=== PATIENT | female | born 1960 | race Caucasian/White ===

== ENCOUNTER 2017-02-18 02:48 | Inpatient (IN) | payer OTHER ==
[2017-02-18] VITALS (13 sets, daily range): BP systolic 91–120; BP diastolic 65–79; PULSE 70–94; RESP 16–26; O2SAT 94–98
[~2017-02-18] VITALS: Ht 167.6 cm; Wt 106.8 kg
[2017-02-18] MEDS ORDERED: Polyethylene Glycol (PEG) 17 Gm Powder PO PRN (03:15)
[2017-02-18] MEDS ORDERED: Senna-Docusate 8.6-50 mg Tablet PO PRN (03:15)
[2017-02-18] MEDS ORDERED: Ondansetron 2 mg/mL 2 mL Inj IVPUSH PRN ×2 (03:15→06:50)
[2017-02-18] MEDS ORDERED: Alum-Mag Hydrox-Simeth 30 mL Suspension PO PRN (03:15)
[2017-02-18 03:30] LABS: Mean Corpuscular Hemoglobin 28.5 pg (27.0-35.0); Mean Corpuscular Volume 88.9 fL (81-100); Platelet Count 108 bil/L (150-400)
[2017-02-18] MEDS ORDERED: HYDROmorphone 1 mg/mL Inj IVPUSH PRN ×2 (03:30→06:50)
--- NOTE | 2017-02-18 03:32 | PCM.HPMED ---
Subjective Date of Service Feb 18, 2017 Primary Provider: Admitting Physician: Marian Beltran DO Primary Care Physician: Derick Attending Physician: Marian Beltran DO Chief Complaint: Patient is a 56-year-old female with medical history significant for hypertension, GERD, and distant history of b/l ureter surgery with chief complaint of chills. History of Present Illness: Per patient, reports sudden right flank pain about 3 days ago. She came to [facility] which initial evaluation showed that she has urinary tract infection with UA WBC greater than 100/hpf and moderate bacteria. No leukocytosis, electrolytes within normal limits. BUN/creatinine 20/1.1 at the time. She was given nitrofurantoin and Pyridium prior to discharge from ED. Symptoms unabated since that time, right flank pain increase with associated malaise, some nausea, and decreased by mouth intake. Patient started to rigors last night with a temp 100.7. Thus she came to [facility] for reevaluation. Per report, patient had a temperature of 37.9, tachycardic, blood pressure initially was 96/63, however decompensated and thus was given bolus fluids, 6 L in total, in addition to starting her on norepinephrine. Antibiotic Rocephin was given. CT abdomen pelvis with low dose contrast was completed, showed a right sided 4x5mm ureter stone with hydronephrosis and dilated proximal ureter. Currently, patient with right flank pain 5 out of 10. Denies any chest pain, shortness of breath, palpitation, lightheadedness, or dizziness. Patient denies any medical history of diabetes, no history of prior stones, nor recurrent UTI in the past year. Initial labs at [facility] showed normal white count 6.7, Hgb 12.2, HCT 36.8 , platelet 124, neutrophil bands 25. Electrolytes sodium 132, potassium 3.1, chloride 100, bicarbonate 19, BUN 34, creatinine 2.1, lactic acid 2.4. Magnesium 1.6 LFT significant for total bili 1.1, AST 37, PLT 78, alkaline phosphatase 78, lipase 11. Urinalysis showed significant urinary protein 100, small trace of blood, positive nitrate, moderate leukocyte esterase, WBC 11-25, many bacteria, addition to 0-2 fine granular cast. Review of Systems: A comprehensive review of systems was conducted with the patient and found to be negative except as above in the History of Present Illness. Allergies Coded Allergies: sulfamethoxazole (Verified Allergy, Intermediate, hives, "Sore in my throat", 02/18/17) trimethoprim (Verified Allergy, Intermediate, hives, "Sore in my throat", 02/18/17) Home Medications Omeprazole 20 mg daily Ranitidine 150 mg daily Hydrochlorothiazide 25 mg daily Atorvastatin 20 mg hs Aspirin 325 mg daily Azelastine 137 MCG/0.137 mL spray Fish oil 1000 mg daily PMH History of urinary tract infection associated with pregnancies GERD Hypertension Dyslipidemia Surgical History Bilateral ureter surgeries at the age of 15 Family History Denies any family history of coronary artery disease or diabetes Social History Hx Alcohol Use: No Hx Substance Use: No Hx Tobacco Use: No Living Arrangement: with Family Exam Exam General: No acute distress, appropriately interactive HEENT: Normocephalic, atraumatic. PERRLA, EOMI, Anicteric sclerae, moist conjunctivae. Neck: No JVD, No bruits. No lymphadenopathy or thyromegaly. Cardiovascular: Tachycardic, regular rhythm, no murmur rub or gallop Pulmonary: b/l air sound with no crackles, wheezes, or rhonchi. no use of accessory muscles. Abdomen: +Bowel sound, Soft, nontender, nondistended. Right costophrenic angle tenderness, no signs of retroperitoneal bleeding Extremities: No clubbing or cyanosis, no lymphedema, no b/l lower leg edema Skin: Normal temperature, turgor, and texture; no rash. No visualized skin ulcer. Neurological: CN II-VII grossly intact, moving equally on all 4 extremities Psychiatric: Normal mood and affect. AOx3 Lab and Diagnostics X-Rays, CTs and MRIs Initial CT abdomen and pelvis from [facility] 02/18/2017 Preliminary report reviewed 5x4mm stone proximal ureter at the level L3, with hydronephrosis and dilated proximal ureter. Vascular/aorta appear to be normal. 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 Septic shock, present admission, active - Positive SIRS criteria for tachycardic, pyrexic, source pyelonephritis - Antibiotics: Ceftriaxone 1 g qd - Received 6 L normal saline, NS 100cc/h, norepinephrine titrate to map >65, can add vasopressin if Levophed >0.5mcg/kg - Lactic acid trending, - Blood/urine culture pending, will need to call result from [facility] as well, reviewed paper chart from OSH Severe pyelonephritis, present on admission, active - Secondary to a right 4 x 5 mm ureter stone with hydronephrosis - Adequate hydration as above - Urologist Dr. Finnegan consulted, emergent surgery. - Hydromorphone IV as needed - Antibiotics as above Acute kidney injury, present on admission, active - Secondary to sepsis and also pyelonephritis - Monitors I's and O's, Mobley catheter in placed - Removal of obstructive stone as above - Abstain from nephrotoxic medication Chronic medical conditions Essential hypertension - Holding hydrochlorothiazide secondary to sepsis Dyslipidemia - Can restart it at her first on 20 mg when patient stable, tolerated by mouth intake GERD - Famotidine while inpatient DVT prophylaxis: Holding heparin subcutaneous pending urological procedures, SCDs CODE STATUS: Full code Patient is admitted under inpatient status with length of stay greater than 2 midnights due to severity of illness. GI Prophylaxis: H2 fredrick VTE Prophylaxis: SCDs Resuscitation Status: CPR: Attempt Resuscitation Attending Statement The patient was seen and examined together with house staff on 02/18/2017 and I agree with the history, exam and plan as outlined in the note above. 45 minutes of critical care time spend with management, plan development and record review. Magdaleno Matt DO Feb 18, 2017 03:32 Marian Beltran DO Feb 18, 2017 05:03
[2017-02-18] MEDS: 0.9% Sodium Chloride 1,000 ML IV SCH ×3 (03:44→23:25)
[2017-02-18 03:46] LABS: BASOPHILS % (AUTO) 0 % (0-3); EOSINOPHILS % (AUTO) 0 % (0-5); MONOCYTES % (AUTO) 7 % (4-12); NEUTROPHILS % (AUTO) 86 % (40-74)
[2017-02-18] MEDS ORDERED: Norepineph 8,000 mCg/250 mL NS 8,000 MCG in IV Premix 1 EACH IV SCH (04:04)
[2017-02-18] MEDS: Norepineph 8,000 mCg/250 mL NS 8,000 MCG in IV Premix 1 EACH IV SCH (04:10)
[2017-02-18 04:11] LABS: Magnesium 1.7 mg/dL (1.6-2.6)
--- NOTE | 2017-02-18 04:29 | ABG ---
DateTimeAnalyzed 04:21:33 -_ pH ____7.315 - 7.350 7.450 pCO2 ___29.1__ -mmHg 35.0 45.0 pO2 ___84.7__ -mmHg 70.0 100 HCO3- ___14.8__ -mmol/L 22.0 26.0 ABE __-10.4__ -mmol/L -2.0 2.0 tHb ___10.6__ -g/dL 12.0 18.0 O2Hb ___95.2__ -% 95.0 COHb ____1.0__ -% 1.5 MetHb ____0.3__ -% 0.4 1.5 sO2 ___96.4__ -% FIO2 ___21.0__ -% Drawn By MD - Date/Time Notified____ 04:28:00 -_ Liter_Flow ____1.00_ -L/min Oxygen Device 1 __CANNULA - Notified By MD - Notified Whom DR HURLEY, TIARA - K+ ____3.4__ -mmol/L tO2 ___14.3__ -Vol% Jordan test _Positive -
[2017-02-18 05:18] LABS: APPEARANCE,URINE CLEAR (CLEAR,HAZY); COLOR,URINE YELLOW (YELLOW); OCCULT BLOOD,URINE MODERATE (NEGATIVE); UROBILINOGEN,URINE NORMAL (NORMAL)
--- NOTE | 2017-02-18 05:35 | NUR ---
Admission//Pain 0315 - Patient admitted into room 2013, admission screening done, A&Ox4 pleasant and cooperative, BP stable and starting to titrate Levophed down, receiving 7th liter of NS and infusing at 100ml/hr, pain 5/10 and patient stated it is tolerable at this time, updated on POC, no distress noted. 0535 - OR crew transferred patient to pre-op, report given and patient A&Ox4, Levophed off at this time, last BP @ 0530 - 115/73. Addendum: 02/18/17 at 0543 by LOREN ESPINOZA RN Amended: Links added.
--- NOTE | 2017-02-18 05:46 | PCM.HPANE ---
Patient Data Date of Service: Feb 18, 2017 Surgeon Admitting Provider:Marian Beltran DO Attending Provider:Yossi Garrido MD Primary Care Physician:Karime Kenney MD Other Provider: Reason for Visit Septic Shock, Pyelonephritis Ht/WT & BMI Height (Feet): 5 Height (Inches): 6.00 Weight (Kilograms): 84.600 Body Mass Index 29.97 Allergies Coded Allergies: sulfamethoxazole (Verified Allergy, Intermediate, hives, "Sore in my throat", 02/18/17) trimethoprim (Verified Allergy, Intermediate, hives, "Sore in my throat", 02/18/17) Past Anesthesia History Anesthesia History: Denies:: Anesthesia Reactions MRSA MRSA: No History History of ENT Problems?: No HEENT History: Denies:: Abnormal Airway Cataracts Difficult Intubation Dysphagia Glaucoma Hearing Problem Sinus Problem TMJ Denture Type: None Teeth Condition: Within Normal Limits Hx of Heart Problems?: No Cardiovascular History: Denies:: AICD Abdominal Aortic Aneurism Atrial Fibrillation Cardiac Surgery Chest Pain Congestive Heart Failure Coronary Artery Disease Edema Heart Murmur Hypertension Irregular Heartbeat Pacemaker Peripheral Vascular Rheumatic Fever Thrombophlebitis Valvular Heart Disease Hx of Respiratory Problem?: No Respiratory History: Denies:: Asthma COPD Chest Surgery Cough Dyspnea Emphysema Hemoptysis Oxygen Administration Pneumonia Pulmonary Embolism Tuberculosis Use of C-PAP Machine Use of Inhalers / NEBS Hx Neurologic Problems?: No Neurological History: Positive for:: Headaches (Before menopause) Hx of GI Problems?: Yes Hx of Problems?: Yes Genitourinary History: Positive for:: Kidney Stones (02/17/17) Urinary Tract Infection (29 years ago) Denies:: HX of Hemodialysis HX of Peritoneal Dialysis: No Female Hx: Denies:: Currently Endometriosis Pelvic Inflammatory Problems with Breasts? Hx Musculoskeletal Problems?: No Hx of Psycho/Social Problems?: No Hx Surgeries?: Yes Hx Any Other Health Problems?: Yes Other History: Positive for:: Hospitalization (13 years ago - ureter sx bilateral) History Blood Transfusions: Positive for:: Accept Blood Products? Denies:: Blood Transfuse Reaction Blood Transfusions Hx Alcohol Use: NoHx Substance Use: No Stop/Bang Treated for Sleep Apnea?: No Do You Have a CPAP Machine?: No S-Snoring: Do You Snore Loudly: Yes T-Tired: feel tired, fatigued: No O-Obsered: Observed not breath: No P-Blood Pressure: treated: No B- Body Mass Index > 35 kg/m2: Yes A- Age over 50: Yes N- Neck Large Circumference: No G- Gender Male: No CHELY Total Score: 3 CHELY Risk Assessment: Low Risk, <3 Yes Risk Assessment Category Category 1A: Patient has history of documented sleep apnea, and HAS NOT received any narcotic, sedative or anesthesia administration during this stay. Category 1B: Patient has history of documented sleep apnea, and HAS received any narcotic , sedative or anesthesia administration during this stay Category 2: Patient has SUSPECTED Obstructive Sleep Apnea, and HAS received any narcotic , sedative or anesthesia administration during this stay. Category 3: Patient has SUSPECTED Obstructive Sleep Apnea and HAS NOT received narcotic, sedative or anesthesia administration during this stay. Category 4: Outpatient in Procedural Areas with known sleep apnea or who screen positive for High Risk via the STOP/BANG questionnaire. Exam Exam Vital Signs Vital Signs Date Time Temp Pulse Resp B/P Pulse Ox O2 Delivery O2 Flow Rate FiO2 02/18/17 03:50 36.8 91 26 120/73 96 Nasal Cannula 1.00 02/18/17 03:50 Supplement Oxygen General Appearance: Alert, Oriented X3, Cooperative, No Acute Distress HEENT/AIRWAY: MP 4, Neck Movement, Mouth Opening Lungs: Clear to Auscultation, Normal Air Movement Heart: Exam Unremarkable, Regular Rate/Rhythm, No Murmurs/Rubs/Gallops Meds/Labs/Diagnostics Admission Meds Current Medications Sodium Chloride (Normal Saline) 1,000 ml @ 100 mls/hr Q10H IV Last administered on 02/18/17t 03:44; Start 02/18/17 at 03:25 Labs Test 02/18/17 03:20 02/18/17 03:38 White Blood Count 12.8th/mm3 (3.8-10.1) Red Blood Count 3.79mil/mm3 (3.90-5.20) Hemoglobin 10.8g/dL (12.0-15.6) Hematocrit 33.7% (35.0-46.0) Mean Corpuscular Volume 88.9fL (81-100) Mean Corpuscular Hemoglobin 28.5pg (27.0-35.0) Mean Corpuscular Hemoglobin Concent 32.0% (32.0-37.0) Red Cell Distribution Width 13.5% (12.3-15.4) Platelet Count 108bil/L (150-400) Neutrophils (%) (Auto) 86% (40-74) Lymphocytes (%) (Auto) 2% (14-46) Monocytes (%) (Auto) 7% (4-12) Eosinophils (%) (Auto) 0% (0-5) Basophils (%) (Auto) 0% (0-3) Band Neutrophils % 5% (1-5) Hematology Comments Sodium Level 139mEq/L (134-144) Potassium Level 3.5mEq/L (3.5-5.2) Chloride Level 108mEq/L (97-108) Carbon Dioxide Level 11mmol/L (18-29) Blood Urea Nitrogen 26mg/dL (6-24) Creatinine 1.56mg/dL (0.57-1.00) Estimat Glomerular Filtration Rate 50mL/min (>59) Glucose Level 115mg/dL (60-99) Lactic Acid Level 1.0mmol/L (0.4-2.0) Calcium Level 7.4mg/dL (8.5-10.1) Magnesium Level 1.7mg/dL (1.6-2.6) Total Bilirubin 0.4mg/dL (0.0-1.2) Aspartate Amino Transf (AST/SGOT) 28U/L (0-50) Alanine Aminotransferase (ALT/SGPT) 32U/L (0-32) Alkaline Phosphatase 66U/L (25-150) Troponin T 0.010ug/L (0.0-0.011) Total Protein 6.0g/dL (6.4-8.4) Albumin 2.4g/dL (3.4-5.0) Prealbumin 9mg/dL (20-40) Urine Color Yellow (YELLOW) Urine Appearance Clear (CLEAR,HAZY) Urine pH 5.0 (5.0-8.0) Urine Specific [place] 1.019 (1.003-1.035) Urine Protein 30mg/dL (NEG,TRACE) Urine Glucose (UA) Negativemg/dL (NEGATIVE) Urine Ketones 40mg/dL (NEGATIVE) Urine Occult Blood Moderate (NEGATIVE) Urine Nitrite Negative (NEGATIVE) Urine Bilirubin Negative (NEGATIVE) Urine Urobilinogen Normalmg/dL (NORMAL) Urine Leukocyte Esterase Negative (NEGATIVE) Urine RBC 0-2/hpf (0-2) Urine WBC 0-5/hpf (0-5) Urine Epithelial Cells Few/hpf (NONE-MOD) Urine Crystals None seen (NONE SEEN) Urine Bacteria Few/hpf (NONE-FEW) Urine Hyaline Casts None/lpf (NONE) Urine Granular Casts None seen (NONE SEEN) Urine Waxy Casts None seen (NONE SEEN) Urine Red Blood Cell Casts None seen (NONE SEEN) Urine White Blood Cell Casts None seen (NONE SEEN) Urine Mucus None seen (None Seen) Urine Trichomonas None seen (NONE SEEN) Urine Yeast None (NONE SEEN) Urinalysis Comment None Urine Culture Reflexed Not indicated Plan Impression Patient chart reviewed, patient interviewed and anesthestic plan with risks, benefits, and alternatives discussed, and informed consent obtained. NPO per Anesth. Guidelines: Yes ASA Physical Status: ASA3 Plus Emergency Anesthetic Plan: GA Bene/Risks/Altern/Consents: Yes HP Complete Prior to Induction: Yes Alec Moreau MD Feb 18, 2017 05:46
[2017-02-18] MEDS ORDERED: Lactated Ringer's 1,000 ML IV ONE (05:52)
[2017-02-18] MEDS ORDERED: Belladonna Alk-Opium 60 mg Rectal Suppository RECTAL ONE (06:29)
--- NOTE | 2017-02-18 06:48 | PCM.SURGPO ---
Immediate Operative Note Date of Surgery: Feb 18, 2017 Pre Operative Diagnosis R ureteral calculus, R hydronephrosis, septic shock Post Operative Diagnosis R ureteral calculus, R hydronephrosis, septic shock Procedure Cystoscopy, R ureteral stent placement Surgeon and Site Inspector Surgeon: Dustin Finnegan MD Assistants: None Findings Cystoscopy revealed scattered mildly erythematous and mildly edematous areas ( consistent with cystitis), no bladder calculi, no bladder tumors, and B/L ureteral orifices in normal position. Mildly cloudy urine was drained from R renal pelvis. R hydronephrosis was seen. R ureteral stent was placed. Complications There were no periprocedural complications identified. Surgical Specimen Removed: Yes Specimen sent to Pathology: No Surgical Specimen description: urine Cx from R kidney sent to micro lab Anesthetic Administered: MAC, Other (IV sedation) Grafts, Implants: Other (28cm x 6F R ureteral JJ stent (no string), 16F Mobley catheter to straight drainage) Output, Estimated Blood Loss: <5 Blood Admin during surgery: No Additional information Patient to be transferred back to CCU when stable. Recommend continuing broad- spectrum IV Abx and IVF hydration post-op. Mobley catheter can be removed when not needed for medical management. Dustin Finnegan MD Feb 18, 2017 06:48
[2017-02-18] MEDS ORDERED: Lactated Ringer's 1,000 ML IV SCH (06:49)
[2017-02-18] MEDS ORDERED: Lactated Ringer's 500 ML IV PRN (06:49)
[2017-02-18] MEDS ORDERED: fentaNYL-PF 50 mCg/mL 2 mL Inj IVPUSH PRN (06:50)
[2017-02-18] MEDS ORDERED: Phenylephrine 10,000 mCg/mL Inj IVPUSH PRN (06:50)
[2017-02-18] MEDS ORDERED: Dexamethasone 4 mg/mL Inj IVPUSH PRN (06:50)
[2017-02-18] MEDS ORDERED: EPHEDrine Sulfate 50 mg/mL Inj IVPUSH PRN (06:50)
[2017-02-18] MEDS ORDERED: MetoCLOpramide 5 mg/mL 2 mL Inj IVPUSH PRN (06:50)
[2017-02-18] MEDS ORDERED: Labetalol 5 mg/mL 4 mL Inj IV PRN (06:50)
[2017-02-18] MEDS ORDERED: hydrALAZINE 20 mg/mL Inj IVPUSH PRN (06:50)
--- NOTE | 2017-02-18 06:51 | PCM.ANEP1 ---
Post Anesthesia PACU Phase 1 Assessment Vital Signs Vital Signs Date Time Temp Pulse Resp B/P Pulse Ox O2 Delivery O2 Flow Rate FiO2 02/18/17 06:45 36.7 94 22 108/76 95 Nasal Cannula 2 02/18/17 03:50 36.8 91 26 120/73 96 Nasal Cannula 1.00 02/18/17 03:50 Supplement Oxygen Anesthetic Administered: MAC Level of Alertness: Awake, talking Pain: No Nausea or Vomiting: No CV Function & Hydration Stable: Yes Airway Device: Oxygen Delivery: Room Air Lungs: Clear to Auscultation, Normal Air Movement PACU Phase 2 Assessment Complications: No Follow up Care: No Patient Instructions Provided: N/A Alec Moreau MD Feb 18, 2017 06:51
--- NOTE | 2017-02-18 06:52 | CONS ---
[address] [address] CONSULTATION REPORT PATIENT: RAMILA LOPEZ : 1960 MR#: [id number] ADMIT: 02/18/2017 JOB ID: [id number] DATE OF SERVICE: 02/18/2017 CHIEF COMPLAINT: Right back pain, right ureteral calculus, right hydronephrosis, septic shock. HISTORY OF PRESENT ILLNESS: I was asked by hospitalist, Dr. Marian Beltran, to evaluate this 56-year-old female for right back pain, right ureteral calculus, right hydronephrosis and septic shock. The patient actually presented to our hospital emergency department on February 15, 2017 for right flank pain and had a urinalysis suspicious for urinary tract infection and was started on Macrobid. The patient then presented to [facility] Emergency Department yesterday evening for right back pain and was found to have tachycardia, hypotension and fever of 38.5 degrees Celsius and had a CT scan of abdomen and pelvis showing a 5 mm right proximal ureteral calculus and right hydroureteronephrosis. The patient was given IV fluid resuscitation, Rocephin, IV antibiotics and was started on norepinephrine for her hypotension. The patient reports fever, shaking chills, right back pain relieved by IV pain medications, nausea with occasional vomiting. No dysuria. The patient states she had difficulty voiding last night and had a Mobley catheter placed at [facility] Emergency Department. The patient reports history of bilateral ureteral surgery at 15 years old for what sounds like a vesicoureteral reflux. The patient reports history of pyelonephritis with no prior history of nephrolithiasis. The patient was transferred from [facility] Emergency Department to [facility] last night under the care of hospitalist, Dr. Beltran. The patient was on Levophed upon transfer from [facility] Emergency Department and Levophed was able to be titrated down and the patient is presently off of Levophed and not presently requiring pressors for her blood pressure. PAST MEDICAL AND PAST SURGICAL HISTORY: Hypertension, gastroesophageal reflux disease. No history of diabetes. History of hypertension, hyperlipidemia, bilateral ureteral surgery as per HPI. HOME MEDICATIONS: Omeprazole, ranitidine, hydrochlorothiazide, atorvastatin, aspirin, azelastine, fish oil. PRESENT HOSPITAL MEDICATIONS: Ceftriaxone, Pepcid, norepinephrine, Dilaudid IV p.r.n., Zofran IV p.r.n., Tylenol p.r.n., Senokot p.r.n., Maalox p.r.n., MiraLAX p.r.n. ALLERGIES: 1. SULFAMETHOXAZOLE. 2. TRIMETHOPRIM. SOCIAL HISTORY: No alcohol use. No substance abuse. No tobacco use. FAMILY HISTORY: Noncontributory. REVIEW OF SYSTEMS: Constitutional: Positive for fever. Positive for chills. GI: Positive for nausea, positive for vomiting. PHYSICAL EXAMINATION: Vital signs: Temperature afebrile presently at 36.8 degrees Celsius, heart rate 91, respiratory rate 26, blood pressure 120/73, O2 sat 96% on 1 L nasal cannula. General: Well-developed well-nourished female in no acute distress. HEENT Exam: Head normocephalic, atraumatic. Eyes: Extraocular muscles intact. Neck: Supple. Chest: No use of accessory muscles. Nonlabored respirations. No retractions. Abdomen: Soft, nondistended, nontender. No palpable masses. No rebound, no guarding. Back: Positive for right costovertebral angle tenderness. Skin: Warm and dry. Neurologic Exam: Sensation grossly intact to touch. Normal speech. Psych Exam: Alert and oriented x3. Normal mood and affect. LABORATORIES: Here at [facility] at 3:20 a.m.: White blood cell count 12.8, hematocrit 33.7, platelets 108. Sodium 139, potassium 3.5, chloride 108, CO2 of 11, BUN 26, creatinine 1.56, glucose 115. Lactic acid 1.00. Urinalysis pending. Microbiology blood cultures pending. On February 15, 2017: Creatinine 1.10. White blood cell count 9.3. Urinalysis greater than 100 white blood cells, 1-5 red blood cells, greater than 30 epithelial cells. Urine culture not done secondary to field contamination with [facility] last night. On February 17, 2017: White blood cell count 6.7. Creatinine 2.1. Lactic acid 2.4. Urinalysis: 11-25 white blood cells, positive nitrite, moderate leukocyte esterase, 0-5 red blood cells. IMAGING: CT scan as per HPI. ASSESSMENT: 1. Right ureteral calculus. 2. Right hydronephrosis. 3. Right back pain. 4. Septic shock with leukocytosis. 5. Hypotension. 6. Tachycardia. 7. Fever. 8. Lactic acidosis. Risks, benefits and alternatives of surgery, specifically cystoscopy and right ureteral stent placement, were discussed with the patient. All questions were answered. The patient wishes to have surgery as recommended. PLAN: We will plan for emergent surgery, specifically cystoscopy and right ureteral stent placement. The patient has been n.p.o. Recommend continuing broad spectrum IV antibiotics. Recommend continuing IV fluid resuscitation. Recommend following laboratories, including white blood cell count, creatinine, electrolytes and lactic acid. Recommend following cultures including blood cultures here at [facility] and urine and blood cultures at [facility]. I recommend continuing pain medications and antiemetics postoperatively. The case was discussed with hospitalist, Dr. Beltran and anesthesiologist, Dr. Alec Moreau, and as per Dr. Beltran and Dr. Moreau, the patient is medically stable to undergo anesthesia and have surgery, in the future. If patient is unable to pass the right ureteral calculus, we will plan for treatment of right ureteral calculus, i.e. cystoscopy, right ureteroscopy, possible basket extraction of calculus, possible holmium laser lithotripsy and right renal stent change, in the future.
[2017-02-18] MEDS ORDERED: Phenazopyridine 97.5 mg Tablet PO PRN (07:00)
[2017-02-18] MEDS ORDERED: NITR-66 PO (08:20)
[2017-02-18] MEDS ORDERED: AZEL137S11 NASAL (08:20)
[2017-02-18] MEDS ORDERED: OMEP40CA36 PO (08:20)
[2017-02-18] MEDS ORDERED: HYDR-4003 PO (08:20)
[2017-02-18] MEDS ORDERED: HYDR25TA4 PO (08:20)
[2017-02-18] MEDS ORDERED: OMEG500C PO (08:20)
[2017-02-18] MEDS ORDERED: ASPI325T32 PO (08:20)
[2017-02-18] MEDS ORDERED: ATOR20TA65 PO (08:20)
[2017-02-18] MEDS ORDERED: RANI300T4 PO (08:20)
[2017-02-18] MEDS ORDERED: Ketamine 10 mg/mL 20 mL Inj ONE (09:45)
[2017-02-18] MEDS ORDERED: Propofol 10,000 mCg/mL 20 mL Inj ONE (09:45)
--- NOTE | 2017-02-18 10:00 | DRSVH ---
PROCEDURE: X-RAY RETROGRADE UROGRAPHY INDICATIONS: C-ARM ASSISTED RIGHT STENT PLACEMENT TECHNIQUE: 4 intra-operative images acquired by the Urology service. COMPARISON: None. FINDINGS: Exam is limited to 4 submitted images. Within these limits, partial opacification of the right renal collecting system demonstrating prominence of the right renal pelvis. Roughly 7 mm round ed radiodensity is present projected over the renal pelvis likely a retained stone. Ureteral stent w as placed. IMPRESSION: Prominence of the right renal pelvis with small intraluminal filling defect projected ove r the renal pelvis suggestive of retained renal stone. Correlate with real-time exam. Dictated by: Lalito HALL Interpreted: Alicia Holt MD on 02/18/2017 at 9:57 Transcribed by: GERRY on 02/18/2017 at 9:59 Approved by: Alicia Holt M.D. on 02/18/2017 at 11:46
[2017-02-18] MEDS: cefTRIAXone Inj 2,000 MG in Dextrose 5% Minibag Plus 50 ML IV SCH (11:03)
--- NOTE | 2017-02-18 11:14 | NUR ---
Post op.. pt received from PACU at 0700 in stable condition. Has denied any pain and is candelaria clear liquids without any nausea. Diet advanced per orders. Mobley is draining clear kaycee urine. Has been transferred to [facility] status, no tele.
--- NOTE | 2017-02-18 11:26 | PCM.PNMED ---
Subjective Date of Service Feb 18, 2017 Subjective Overnight the patient underwent a right ureteral stent procedure with Dr. Finnegan. This morning Mrs. Phan reports feeling much better than yesterday. She feels weak and "worn out" but otherwise denies any fevers/chills, nausea/vomiting, chest pain, shortness of breath. Exam Vital Signs Vital Sign - Last Date Time Temp Pulse Resp B/P Pulse Ox O2 Delivery O2 Flow Rate FiO2 02/18/17 08:44 88 02/18/17 08:00 36.8 21 115/75 96 Nasal Cannula 1.50 Intake and Output 02/17/17 02/17/17 02/18/17 Cumulative From/Thru 15:00 23:00 07:00 02/18/17 04:04 - 02/18/17 06:51 Intake Total 823 ml 823 ml Output Total 555 ml 555 ml Balance 268 ml 268 ml Intake Oral 0 ml 0 ml IV Total 823 ml 823 ml Output Urine Total 550 ml 550 ml Estimated Blood Loss 5 ml 5 ml # Bowel Movements 0 0 Exam General: Pleasant and cooperative female in no acute distress, appropriately interactive HEENT: NCAT. PERRLA, EOMI. Membranes pink and moist. Neck: Supple without JVD or thyromegaly. There is a right central line in place. Cardiovascular: RRR, no murmur/rub/gallop Pulmonary: CTA bilaterally without wheezes/rales/rhonchi. Abdomen: Normoactive bowel sounds. Soft, nontender, nondistended. Mild right CVA tenderness. Extremities: No clubbing or cyanosis, edema Skin: Normal temperature, turgor, and texture; no rash Neurological: A&Ox3. CN II-VII grossly intact, normal strength and sensation in all extremities. Psychiatric: Normal mood and affect. IVs and Medications Medications Reviewed: Medications were reviewed in detail Lab and Diagnostics Result Diagram: 02/18/17 0320 02/18/17 032 Microbiology MRSA swab negative Blood cultures pending Urine cultures pending X-Rays, CTs and MRIs Initial CT abdomen and pelvis from [facility] 02/18/2017 Preliminary report reviewed 5x4mm stone proximal ureter at the level L3, with hydronephrosis and dilated proximal ureter. Vascular/aorta appear to be normal. Urography 02/18 IMPRESSION: Prominence of the right renal pelvis with small intraluminal filling defect projected over the renal pelvis suggestive of retained renal stone. Correlate with real-time exam. 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 Septic shock, present admission. Resolved. - Patient was positive for SIRS criteria (tachycardic, pyrexic) with probable source pyelonephritis - Received 6 L normal saline, NS 100cc/h, norepinephrine titrate to map >65, can add vasopressin if Levophed >0.5mcg/kg - Antibiotics Ceftriaxone 2 g IV daily - Lactic acid 1.1 - Blood cultures pending - Urine culture not indicated from our UA - Transfer out of ICU if her blood pressures are maintained Severe pyelonephritis, present on admission, active - Secondary to a right 4 x 5 mm ureter stone with hydronephrosis - Hydration as above - Urologist Dr. Finnegan consulted, emergent surgery with right ureteral stent placement - Hydromorphone IV as needed - Antibiotics as above Acute kidney injury, present on admission, active - Secondary to sepsis and also pyelonephritis - Monitors I's and O's, will remove novak as tolerated - Removal of obstructive stone as above with stent placement - Avoid nephrotoxic medication Chronic medical conditions Essential hypertension - Continue to hold hydrochlorothiazide - Continue to monitor blood pressures Hyperlipidemia - Continue home Atorvastatin, tolerated by mouth intake GERD - Continue Famotidine DVT prophylaxis: Holding heparin subcutaneous pending urological procedures, SCDs in place. CODE STATUS: Full code Patient is admitted under inpatient status with length of stay greater than 2 midnights due to severity of illness. Pain Evaluation: Adequate Pain Control GI Prophylaxis: H2 fredrick VTE Prophylaxis: SCDs VTE Mechanical Devices: Intermittant Pneumatic CD Resuscitation Status: CPR: Attempt Resuscitation Attending Statement The patient was seen and examined together with Dr. Harper on 02/18/2017 and I agree with the history, exam and plan as outlined in the note above. . Rick Harper DO Feb 18, 2017 11:26 Yossi Garrido MD Feb 20, 2017 08:03
[2017-02-18] MEDS: HYDROcodone-APAP 10-325 mg PO PRN ×2 (15:33→20:24)
[2017-02-18] MEDS ORDERED: cefTRIAXone Inj 1,000 MG in Dextrose 5% Minibag Plus 50 ML IV SCH (20:30)
[2017-02-18] MEDS ORDERED: cefTRIAXone Inj 2,000 MG in Dextrose 5% Minibag Plus 50 ML IV SCH (20:30)
--- NOTE | 2017-02-18 21:26 | OP ---
[address] [address] OPERATIVE REPORT PATIENT: RAMILA LOPEZ : 1960 MR#: [id number] ADMIT: 02/18/2017 JOB ID: [id number] DATE OF SURGERY: 02/18/2017 PREOPERATIVE DIAGNOSIS(ES): Right ureteral calculus, right hydronephrosis, septic shock. POSTOPERATIVE DIAGNOSIS(ES): Right ureteral calculus, right hydronephrosis, septic shock. PROCEDURE: Cystoscopy, right ureteral stent placement. SURGEON: Dustin Finnegan MD. STRAW HAT BRIM CUTTER OPERATOR: None. ANESTHESIA: MAC with IV sedation. ESTIMATED BLOOD LOSS: Less than 5 mL. SPECIMENS: Urine culture from right kidney sent to microbiology lab. DRAINS: 28 cm x 6-Faroese right ureteral double-J stent, 16-Faroese Mobley catheter to straight drainage. COMPLICATIONS: None. CONDITION: Stable. FINDINGS: Cystoscopy revealed scattered mildly erythematous and mildly edematous (consistent with cystitis), no bladder calculi, no bladder tumors, and bilateral ureteral orifices in normal position. Mildly cloudy urine was drained from the right renal pelvis. Right hydronephrosis was seen. Right ureteral stent was placed. INDICATIONS: The patient is a 56-year-old female with right ureteral calculus, right hydronephrosis, and septic shock. The patient now presents for cystoscopy and right ureteral stent placement. PROCEDURE: The patient was brought to the operating room and placed supine on the operating room table. The patient had been given ceftriaxone IV antibiotics in the emergency department prior to surgery. Sequential compression device boots were placed. MAC with IV sedation anesthesia was administered. The patient was brought down into dorsal lithotomy position. The patient was prepped and draped in standard sterile surgical fashion. Of note, Mobley catheter had been removed prior to prepping and draping the patient. A 22-Faroese rigid cystoscope was placed into the urethra without difficulty. Cystoscopy revealed scattered mildly erythematous and mildly edematous areas (consistent with cystitis), no bladder calculi, no bladder tumors, and bilateral ureteral orifices in normal position. An angle-tip Ultratrack guidewire was passed into the right ureteral orifice and passed up the right ureter and placed into the right renal pelvis. A 5-Faroese open-ended catheter was passed over the guidewire through the cystoscope and passed up the right ureter into the right renal pelvis. The guidewire was removed. Mildly cloudy urine was drained from the right renal pelvis via the open-ended catheter. After all the urine was drained from the right renal collecting system a small amount of contrast was instilled into the right renal collecting system via the open-ended catheter. Right hydronephrosis was seen. The guidewire was advanced through the open-ended catheter up the right ureter into the right renal pelvis. Open-ended catheter was removed. A 28 cm x 6-Faroese ureteral double-J stent, with the stent string removed prior to stent placement, was passed over the guidewire through the cystoscope and passed up the right ureter and placed so proximal pigtail was located in the right renal pelvis and distal pigtail was located in the bladder. The guidewire was removed. Correct positioning of the stent was confirmed both fluoroscopically and under direct visualization using cystoscope. Good efflux of contrast and mildly cloudy urine could be seen draining from the distal end of the stent into the bladder, further confirming correct stent positioning. Right ureteral stent was placed. The cystoscope was removed from the patient. A 16-Faroese Mobley catheter was placed through the urethra and into the bladder without difficulty. Mobley catheter balloon was inflated with 10 mL of sterile water. Mobley catheter was placed to straight drainage. Of note, some of the urine that was drained from the right renal pelvis was sent to the microbiology lab as urine culture from right kidney. Mobley catheter was placed through the urethra into the bladder without difficulty. Mobley catheter balloon was inflated with 10 mL sterile water. Mobley catheter was placed to straight drainage. The skin was cleaned and dried. The patient was placed in the supine position. The patient was transferred to the recovery room in stable condition. The patient tolerated the procedure well. PLAN: Is for the patient to be transferred back to the CCU when stable. Recommend continuing broad-spectrum IV antibiotics and IV fluid hydration postoperatively. Mobley catheter can be removed when not needed for medical management. Recommend following laboratories, including white blood cell count, creatinine and electrolytes postoperatively. Recommend following up on urine and blood culture results. When patient is stable for discharge home recommend the patient return to see me in the office in approximately 2-3 weeks with a KUB x-ray prior to the appointment and recommend that patient be discharged home on Flomax and appropriate antibiotic to complete a two-week course, pain medication and that patient be instructed to increase p.o. fluid intake and to strain her urine.
[2017-02-19 03:33] VITALS: BP 95/64; PULSE 59; RESP 16; O2SAT 96
[2017-02-19] MEDS: Norepineph 8,000 mCg/250 mL NS 8,000 MCG in IV Premix 1 EACH IV SCH (04:10)
--- NOTE | 2017-02-19 05:26 | NUR ---
Renal, pain Vs as noted. Up to bathroom to void with standby assist. Tolerated well. Urine dark cloudy without particulate when strained. Complains of back discomforts treated once with [place] with adequate relief. IVF NS at 100ml/h to right IJ cvl. Remains on room air with sats mid 90s. Remains off tele in [facility].
[2017-02-19 05:28] LABS: Mean Corpuscular Hemoglobin 28.5 pg (27.0-35.0); Mean Corpuscular Volume 88.4 fL (81-100); Platelet Count 98 bil/L (150-400)
[2017-02-19 05:43] LABS: BASOPHILS % (AUTO) 0.1 % (0-3); EOSINOPHILS % (AUTO) 0 % (0-5); NEUTROPHILS % (AUTO) 83.1 % (40-74)
[2017-02-19 09:31] VITALS: BP 96/64; PULSE 67; RESP 18; O2SAT 98
[2017-02-19] MEDS: 0.9% Sodium Chloride 1,000 ML IV SCH ×2 (09:37→22:57)
[2017-02-19] MEDS: cefTRIAXone Inj 2,000 MG in Dextrose 5% Minibag Plus 50 ML IV SCH (09:37)
[2017-02-19 12:19] VITALS: BP 124/85; PULSE 71; RESP 16; O2SAT 97
--- NOTE | 2017-02-19 12:28 | PCM.PNMED ---
Subjective Date of Service Feb 19, 2017 Subjective Overnight there were no acute events. Mrs. Phan reports feeling stronger and that her pain is being managed better. She reports mild flank tenderness but no fevers, chills, nausea, vomiting. She would like her IJ pulled so she can walk the unit. Exam Vital Signs Vital Sign - Last Date Time Temp Pulse Resp B/P Pulse Ox O2 Delivery O2 Flow Rate FiO2 02/19/17 12:19 36.6 71 16 124/85 97 Room Air 02/18/17 16:00 1.50 Intake and Output 02/18/17 02/18/17 02/19/17 Cumulative From/Thru 15:00 23:00 07:00 02/18/17 04:04 - 02/19/17 05:25 Intake Total 2274 ml 1590 ml 4687 ml Output Total 1025 ml 650 ml 2230 ml Balance 1249 ml 940 ml 2457 ml Intake Oral 1277 ml 450 ml 1727 ml IV Total 997 ml 1140 ml 2960 ml Output Urine Total 1025 ml 650 ml 2225 ml Estimated Blood Loss 5 ml # Bowel Movements 0 Exam General: Pleasant and cooperative female sitting upright in NAD HEENT: NCAT. PERRLA, EOMI. Membranes pink and moist. Neck: Supple without JVD or thyromegaly. There is a right central line in place. Cardiovascular: RRR, no murmur/rub/gallop Pulmonary: CTA bilaterally without wheezes/rales/rhonchi. Abdomen: Normoactive bowel sounds. Soft, nontender, nondistended. Mild right CVA tenderness. Extremities: No clubbing or cyanosis, edema Skin: Normal temperature, turgor, and texture; no rash Neurological: A&Ox3. CN II-VII grossly intact, normal strength and sensation in all extremities. Psychiatric: Normal mood and affect. IVs and Medications Medications Reviewed: Medications were reviewed in detail Lab and Diagnostics Result Diagram: 02/19/1751902/19/17519 Microbiology MRSA swab negative Blood cultures pending Urine cultures pending X-Rays, CTs and MRIs Initial CT abdomen and pelvis from [facility] 02/18/2017 Preliminary report reviewed 5x4mm stone proximal ureter at the level L3, with hydronephrosis and dilated proximal ureter. Vascular/aorta appear to be normal. Urography 02/18 IMPRESSION: Prominence of the right renal pelvis with small intraluminal filling defect projected over the renal pelvis suggestive of retained renal stone. Correlate with real-time exam. 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 Septic Shock, present on admission. Resolved. - Patient admitted with SIRS criteria with probable pyelonephritis as source - Received 6L NS with Norepinephrine weaned off early 02/18 - Lactic Acid normalized at 1.1 - Transferred out of ICU 02/18 Severe pyelonephritis, present on admission. Improving. - Secondary to a right 4 x 5 mm ureter stone with hydronephrosis - Urologist Dr. Finnegan consulted, emergent surgery with right ureteral stent placement - WBC trending toward normal, lactate normal - Will obtain urine cultures from [facility] for ongoing and outpatient antibiotic choice - NS at 100ml/hr, Ceftriaxone 2g IV daily - Hydromorphone IV as needed - Plan on discharge per Dr. Finnegan: Follow up in [address] Finnegan with KUB done prior to visit Continue Flomax until follow up 2 weeks of antibiotics and pain medication Acute kidney injury, present on admission. Improving. - Secondary to sepsis and also pyelonephritis - Creatinine fell to 1.12 - Hydration as above - Avoid nephrotoxic medications Essential hypertension - Continue to hold hydrochlorothiazide Hyperlipidemia - Continue Atorvastatin GERD - Continue Famotidine Disposition: Patient will likely be discharged tomorrow depending on her continued response to hydration and overall medical stability. DVT prophylaxis: Holding heparin subcutaneous pending urological procedures, SCDs in place. CODE STATUS: Full code Pain Evaluation: Adequate Pain Control GI Prophylaxis: H2 fredrick VTE Prophylaxis: SCDs VTE Mechanical Devices: Intermittant Pneumatic CD Resuscitation Status: CPR: Attempt Resuscitation Attending Statement The patient was seen and examined together with Dr. Harper on 02/19/2017 and I agree with the history, exam and plan as outlined in the note above. . Rick Harper DO Feb 19, 2017 12:28 Yossi Garrido MD Feb 20, 2017 08:03
--- NOTE | 2017-02-19 13:48 | NUR ---
Social Work: Screen/Multidisciplinary Rounds D: Per EMR review, pt is a 56 year old female admitted for septic shock, pyelonephritis. Pt is John Covarrubias with no supplement. PCP is Karime Kenney MD. NOK is Shakeel Phan, spouse. Advanced directives information left or patent at bedside. Readmit score is low, 08/22. Pt lives in [place] with her spouse. Pt is I at baseline and has been I during admission. Pt has been participating in her own self-care. No concerns discussed in rounds for pt's capacity for self-care. A: Pt who lives at home with her spouse. P: Anticipate pt to discharge home via POV once medically stable; SEARCH DIRECTOR will continue to follow to assess for discharge needs. CLAUDIA Haddad
[2017-02-19 16:19] VITALS: BP 107/64; PULSE 82; RESP 15; O2SAT 98
[2017-02-19] MEDS: HYDROcodone-APAP 10-325 mg PO PRN ×2 (16:27→19:53)
--- NOTE | 2017-02-19 18:14 | NUR ---
/BP No reports of chest pain/pressure/discomfort. No tele, systolic BP 96 this AM, resolved to WNL this afternoon. No reports of n/v/d/c or abdominal pain, states she does feel bloated. Soft BM this AM. Voiding dark yellow urine with small amounts of dribbling post void per patient. Straining urine, no solid particles visualized. Tolerating PO intake well. Reports generalized moderate fatigue. Flank pain 5-7/10, reports 5/10 as tolerable, did not want [place] 10/325 until after 4pm, one tablet brought pain down from 7 to 4.
[2017-02-19 19:47] VITALS: BP 108/73; RESP 18; O2SAT 97
[2017-02-19 22:53] VITALS: BP 107/73; PULSE 84; RESP 20; O2SAT 95
[2017-02-20 03:22] LABS: BASOPHILS % (AUTO) 0.1 % (0-3); EOSINOPHILS % (AUTO) 0.1 % (0-5); Mean Corpuscular Hemoglobin 28.7 pg (27.0-35.0); Mean Corpuscular Volume 87.2 fL (81-100); NEUTROPHILS % (AUTO) 79.1 % (40-74); Platelet Count 111 bil/L (150-400)
--- NOTE | 2017-02-20 06:01 | NUR ---
Pain / UO Patient given Vicodin for pain, reports right flank pain drops form 7 down to 4. States 4 is tolerable and declines any further pain medication. Patient voiding per hat in the toilet. Straining urine, no solids noted. Continue to monitor.
[2017-02-20 07:53] VITALS: BP 110/73; PULSE 74; RESP 18; O2SAT 98
[2017-02-20] MEDS: cefTRIAXone Inj 2,000 MG in Dextrose 5% Minibag Plus 50 ML IV SCH (08:06)
[2017-02-20] MEDS: 0.9% Sodium Chloride 1,000 ML IV SCH (08:06)
[2017-02-20] MEDS: HYDROcodone-APAP 10-325 mg PO PRN (10:51)
[2017-02-20] MEDS ORDERED: TAMS0.4C98 PO (12:29)
[2017-02-20] MEDS ORDERED: LACT1.5C PO (12:29)
[2017-02-20] MEDS ORDERED: LEVO750T9 PO (12:29)
--- NOTE | 2017-02-20 12:37 | PCM.DIMED ---
LACIE GAINES DO 02/20/17 1225: Discharge Instructions Date of Service Feb 20, 2017 Dates of Hospitalization Feb 18, 2017 at 02:59 Discharge Diagnosis Discharge Diagnosis Septic Shock, present on admission. Resolved. Severe pyelonephritis, present on admission. Improving. Acute kidney injury, present on admission. Improving. Essential hypertension Hyperlipidemia GERD Medication Instructions Additional med instructions Continue Taking Flowmax until you see your urologist, at which point they will decide whether or not to continue. Continue the Antibiotics for 10 days (Levaquin 750 mg Daily.) Pain medication as needed. 1 pill every 4 - 6 hours for pain. Do not combine with alcoholic beverages or operate motor vehicles while taking this medication. Patient Instructions Patient Instructions It is important to stay hydrated and continue regular urination. Increase dietary supplementation with live culture yogurt, Kimchi, sauerkraut ( refrigerated) to increase the healthy digestive probiotics. Follow-up plan Follow up with your PCP in 1-2 weeks following your hospital stay. Follow up with Dr. Finnegan, your urologist in 2 weeks. You will need an XRAY of your abdomen (KUB) before your urology visit. Follow-up Provider: Karime Kenney MD Follow-up with PCP in: 2 weeks Provider: Dustin Finnegan MD Follow-up in: 2 weeks Yossi Garrido MD 02/20/17 1606: Discharge Instructions Attending's Statement The patient was seen and examined together with Dr. Gaines on 02/20/2017 and I agree with the history, exam and plan as outlined in the note above. . LACIE GAINES DO Feb 20, 2017 12:25 Yossi Garrido MD Feb 20, 2017 16:06
[2017-02-20] MEDS ORDERED: HYDR-3740 PO (12:38)
--- NOTE | 2017-02-20 13:35 | NUR ---
Discharge pt ordered for discharge home with family. pt aware and agreeable. discharge instructions and medication reviewed with patient and . pt escorted to front lobby via wheelchair with all belongings at about 1325.
--- NOTE | 2017-02-20 19:39 | PCM.DC.MED ---
Discharge Summary Date of Service Feb 20, 2017 Dates of Hospitalization Date of Hospital Admission Feb 18, 2017 at 02:59 Date of Discharge: Feb 20, 2017 Providers: Admitting Physician: Marian Beltran DO Primary Care Physician: Karime Kenney MD Attending Physician: Yossi Garrido MD Diagnosis at Time of Discharge Diagnosis at Time of Discharge Septic Shock, present on admission. Resolved. Severe pyelonephritis, present on admission. Improving. Acute kidney injury, present on admission. Improving. Essential hypertension Hyperlipidemia GERD Procedures XRay, CTs & MRIs Initial CT abdomen and pelvis from [facility] 02/18/2017 Preliminary report reviewed 5x4mm stone proximal ureter at the level L3, with hydronephrosis and dilated proximal ureter. Vascular/aorta appear to be normal. Urography 02/18 IMPRESSION: Prominence of the right renal pelvis with small intraluminal filling defect projected over the renal pelvis suggestive of retained renal stone. Correlate with real-time exam. Dictated by: Lalito العلي RRA Interpreted: Alicia Holt MD on 02/18/2017 at 9:57 Transcribed by: GERRY on 02/18/2017 at 9:59 Brief History Per patient, reports sudden right flank pain about 3 days ago. She came to [facility] which initial evaluation showed that she has urinary tract infection with UA WBC greater than 100/hpf and moderate bacteria. No leukocytosis, electrolytes within normal limits. BUN/creatinine 20/1.1 at the time. She was given nitrofurantoin and Pyridium prior to discharge from ED. Symptoms unabated since that time, right flank pain increase with associated malaise, some nausea, and decreased by mouth intake. Patient started to rigors last night with a temp 100.7. Thus she came to [facility] for reevaluation. Per report, patient had a temperature of 37.9, tachycardic, blood pressure initially was 96/63, however decompensated and thus was given bolus fluids, 6 L in total, in addition to starting her on norepinephrine. Antibiotic Rocephin was given. CT abdomen pelvis with low dose contrast was completed, showed a right sided 4x5mm ureter stone with hydronephrosis and dilated proximal ureter. Patient was treated with antibiotics, a short duration of pressers, right ureteral stent placement placed and antibiotics for pyelo- nephritis and acute kidney injury, and septic shock and discharged 02/20/17 in stable condition. 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 Septic Shock, present on admission. Resolved. - Patient admitted with SIRS criteria with probable pyelonephritis as source - Transferred out of ICU 02/18 and discharged home 02/20/17. Severe pyelonephritis, present on admission. Resolved. - Secondary to a right 4 x 5 mm ureter stone with hydronephrosis - Urologist Dr. Finnegan consulted, emergent surgery with right ureteral stent placement - WBC trended toward normal, lactate normal - NS at 100ml/hr, Ceftriaxone 2g IV daily until discharge. - Hydromorphone IV as needed before discharge. - Plan on discharge per Dr. Finnegan: Follow up in [address] Finnegan with KUB done prior to visit Continue Flomax until follow up 2 weeks of antibiotics and pain medication Acute kidney injury, present on admission. Improving. - Secondary to sepsis and also pyelonephritis - Creatinine fell to 1.12 Essential hypertension - Continue to hold hydrochlorothiazide, will restart as outpatient. Hyperlipidemia - Continue Atorvastatin GERD - Continue Famotidine Disposition: Patient is discharged today (02/9717) in stable condition. Exam Vital Signs (Last) Date Time Temp Pulse Resp B/P Pulse Ox O2 Delivery O2 Flow Rate FiO2 02/20/17 07:53 36.8 74 18 110/73 98 Room Air 02/18/17 16:00 1.50 Exam General: Pleasant and cooperative female sitting upright in NAD HEENT: NCAT. PERRLA, EOMI. Membranes pink and moist. Neck: Supple without JVD or thyromegaly. There is a right central line in place. Cardiovascular: RRR, no murmur/rub/gallop Pulmonary: CTA bilaterally without wheezes/rales/rhonchi. Abdomen: Normoactive bowel sounds. Soft, nontender, nondistended. Mild right CVA tenderness. Extremities: No clubbing or cyanosis, edema Skin: Normal temperature, turgor, and texture; no rash Neurological: A&Ox3. CN II-VII grossly intact, normal strength and sensation in all extremities. Psychiatric: Normal mood and affect. Test 02/18/17 03:20 02/18/17 03:38 02/18/17 06:30 02/19/17 05:20 Hemoglobin A1c 5.5% (4.8-5.6) Lactic Acid Level 1.0mmol/L (0.4-2.0) Magnesium Level 1.7mg/dL (1.6-2.6) Troponin T 0.010ug/L (0.0-0.011) Prealbumin 9mg/dL (20-40) Urine Color Yellow (YELLOW) Urine Appearance Clear (CLEAR,HAZY) Urine pH 5.0 (5.0-8.0) Urine Specific Hanna 1.019 (1.003-1.035) Urine Protein 30mg/dL (NEG,TRACE) Urine Glucose (UA) Negativemg/dL (NEGATIVE) Urine Ketones 40mg/dL (NEGATIVE) Urine Occult Blood Moderate (NEGATIVE) Urine Nitrite Negative (NEGATIVE) Urine Bilirubin Negative (NEGATIVE) Urine Urobilinogen Normalmg/dL (NORMAL) Urine Leukocyte Esterase Negative (NEGATIVE) Urine RBC 0-2/hpf (0-2) Urine WBC 0-5/hpf (0-5) Urine Epithelial Cells Few/hpf (NONE-MOD) Urine Crystals None seen (NONE SEEN) Urine Bacteria Few/hpf (NONE-FEW) Urine Hyaline Casts None/lpf (NONE) Urine Granular Casts None seen (NONE SEEN) Urine Waxy Casts None seen (NONE SEEN) Urine Red Blood Cell Casts None seen (NONE SEEN) Urine White Blood Cell Casts None seen (NONE SEEN) Urine Mucus None seen (None Seen) Urine Trichomonas None seen (NONE SEEN) Urine Yeast None (NONE SEEN) Urinalysis Comment None Urine Culture Reflexed Not indicated Hold Urine Received (Received) Band Neutrophils % 0% (1-5) Hematology Comments Total Bilirubin 0.2mg/dL (0.0-1.2) Aspartate Amino Transf (AST/SGOT) 18U/L (0-50) Alanine Aminotransferase (ALT/SGPT) 25U/L (0-32) Alkaline Phosphatase 54U/L (25-150) Total Protein 5.1g/dL (6.4-8.4) Albumin 2.4g/dL (3.4-5.0) Test 02/20/17 03:05 White Blood Count 10.1th/mm3 (3.8-10.1) Red Blood Count 3.66mil/mm3 (3.90-5.20) Hemoglobin 10.5g/dL (12.0-15.6) Hematocrit 31.9% (35.0-46.0) Mean Corpuscular Volume 87.2fL (81-100) Mean Corpuscular Hemoglobin 28.7pg (27.0-35.0) Mean Corpuscular Hemoglobin Concent 32.9% (32.0-37.0) Red Cell Distribution Width 14.2% (12.3-15.4) Platelet Count 111bil/L (150-400) Neutrophils (%) (Auto) 79.1% (40-74) Lymphocytes (%) (Auto) 11.1% (14-46) Monocytes (%) (Auto) 9.0% (4-12) Eosinophils (%) (Auto) 0.1% (0-5) Basophils (%) (Auto) 0.1% (0-3) Sodium Level 140mEq/L (134-144) Potassium Level 3.8mEq/L (3.5-5.2) Chloride Level 109mEq/L (97-108) Carbon Dioxide Level 16mmol/L (18-29) Blood Urea Nitrogen 25mg/dL (6-24) Creatinine 1.15mg/dL (0.57-1.00) Estimat Glomerular Filtration Rate 70mL/min (>59) Glucose Level 121mg/dL (60-99) Calcium Level 7.9mg/dL (8.5-10.1) Microbiology Results MRSA swab negative Blood cultures pending Urine cultures pending Discharge Medications Discharge Medications Aspirin (Aspirin) 325 Mg Tablet 325 MG PO DAILY (Reported) Atorvastatin Calcium (Atorvastatin Calcium) 20 Mg Tablet 20 MG PO HS (Reported) Hydrochlorothiazide (Hydrochlorothiazide) 25 Mg Tablet 10 MG PO DAILY (Reported ) Lactobacillus Acidophilus (Probiotic Acidophilus) 1.5 Mg (250 Million Cell) Capsule 1.5 MG PO DAILY Prescribed by: LACIE GAINES DO Levofloxacin (Levaquin) 750 Mg Tablet 750 MG PO DAILY Prescribed by: LACIE GAINES DO Nitrofurantoin Macrocrystal (Macrodantin) 100 Mg Capsule 1 CAPSULE PO BID ( Reported) [place]-3 Fatty Acids (Fish Oil) 500 Mg Capsule.dr 1,000 MG PO DAILY (Reported) Omeprazole (Omeprazole) 40 Mg Capsule.dr 40 MG PO DAILY (Reported) Ranitidine (Ranitidine) 300 Mg Tablet 300 MG PO HS (Reported) Tamsulosin (Flomax) 0.4 Mg Capsule 0.4 MG PO DAILY Prescribed by: LACIE GAINES DO As needed Azelastine HCl (Azelastine HCl) 137 Mcg/0.137 Ml [place].pump 1 SPRAY NASAL DAILY PRN PRN allergies (Reported) Hydrocodone-Acetaminophen 10-325 mg (Hydrocodone-Acetaminophen 10-325 mg) 1 Each Tablet 1-2 TABLET PO Q4H PRN PRN For Pain Prescribed by: LACIE GAINES DO Hydrocodone-Acetaminophen 5-325 mg (Hydrocodone-Acetaminophen 5-325 mg) 1 Each Tablet 1-2 TABLET PO Q6H PRN PRN For Pain (Reported) Additional med instructions Continue Taking Flowmax until you see your urologist, at which point they will decide whether or not to continue. Continue the Antibiotics for 10 days (Levaquin 750 mg Daily.) Pain medication as needed. 1 pill every 4 - 6 hours for pain. Do not combine with alcoholic beverages or operate motor vehicles while taking this medication. Followup Plan Disposition: Home. Follow-up plan Follow up with your PCP in 1-2 weeks following your hospital stay. Follow up with Dr. Finnegan, your urologist in 2 weeks. You will need an XRAY of your abdomen (KUB) before your urology visit. Patient Instructions It is important to stay hydrated and continue regular urination. Increase dietary supplementation with live culture yogurt, Kimchi, sauerkraut ( refrigerated) to increase the healthy digestive probiotics. Follow-up Provider: Karime Kenney MD Follow-up with PCP in: 2 weeks Provider: Dustin Finnegan MD Follow-up in: 2 weeks Time spent Greater than 30 minutes was spent in preparation of discharge with greater than 50% of that time dedicated to patient counseling and coordination of care. . Attending Statement The patient was seen and examined together with Dr. Gaines on 02/20/2017 and I agree with the history, exam and plan as outlined in the note above. . copies to: Dustin Finnegan MD; Karime Kenney MD, COREY P DO Feb 20, 2017 19:33 Yossi Garrido MD Feb 21, 2017 09:15
== END 2017-02-20 13:15 | disposition home or self-care (01) | DRG 871 ==
LOC: CCU 02:59 → PCC 08:30
PROVIDERS: ADMIT Internal Medicine; ATTEND Internal Medicine
PROC: BT141ZZ Fluoroscopy of Kidneys, Ureters and Bladder using Low Osmolar Contrast (ICD-10-PCS; 2017-02-18)
PROC: 4A033B1 Measurement of Arterial Pressure, Peripheral, Percutaneous Approach (ICD-10-PCS; 2017-02-18)
PROC: 0T768DZ Dilation of Right Ureter with Intraluminal Device, Via Natural or Artificial Opening Endoscopic (ICD-10-PCS; principal; 2017-02-18 05:00)
DX: A41.9 Sepsis, unspecified organism (principal); R65.21 Severe sepsis with septic shock; N13.6 Pyonephrosis; I10 Essential (primary) hypertension; K21.9 Gastro-esophageal reflux disease without esophagitis; E78.5 Hyperlipidemia, unspecified; Z79.82 Long term (current) use of aspirin

== ENCOUNTER 2017-03-17 12:13 | Day surgery (SDC) | payer OTHER ==
[~2017-03-17] VITALS: Ht 167.6 cm; Wt 94.3 kg
[2017-03-17] VITALS (9 sets, daily range): BP systolic 102–122; BP diastolic 66–76; PULSE 66–83; RESP 14–17; O2SAT 95–99
[~2017-03-17 12:13] MED LIST: ASPI325T32 PO; ATOR20TA65 PO; HYDR-3740 PO; HYDR12.5 PO; LORA10CA PO; Lactated Ringer's 1,000 ML IV SCH; OMEG500C PO; OMEP40CA36 PO; RANI300T4 PO; TAMS0.4C98 PO; cefTRIAXone 2,000 mg/D5W 50 mL IV Minibag Plus IV SCH
[2017-03-17] MEDS ORDERED: cefTRIAXone 2,000 mg/D5W 50 mL IV Minibag Plus IV ONE ×2 (13:00)
[2017-03-17] MEDS ORDERED: Lactated Ringer's 1,000 ML IV ONE (13:02)
[2017-03-17] MEDS ORDERED: Lactated Ringer's 500 ML IV PRN (15:06)
[2017-03-17] MEDS ORDERED: Lactated Ringer's 1,000 ML IV SCH (15:06)
--- NOTE | 2017-03-17 15:06 | PCM.HPANE ---
Patient Data Surgeon Admitting Provider: Attending Provider:Dustin Finnegan MD Primary Care Physician:Karime Kenney MD Other Provider:Rick Blank Anesthesia Reason for Visit Right Kidney Stone Ht/WT & BMI Height (Feet): 5 Height (Inches): 6 Weight (Kilograms): 94.35 Body Mass Index 33.00 Allergies Coded Allergies: sulfamethoxazole (Verified Allergy, Intermediate, hives, "Sore in my throat", 03/10/17) trimethoprim (Verified Allergy, Intermediate, hives, "Sore in my throat", 03/10/17) Past Anesthesia History Anesthesia History: Denies:: Abnormal Airway, Anesthesia Reactions, Difficult Intubation Diabetes History Hx Diabetes?: No MRSA MRSA: No Medications Blood Thinner: Aspirin Hypertension Medication: No Home Meds Incl Beta Shahzad: No Active Scripts Tamsulosin (Flomax)0.4 Mg Capsule0.4 Mg PO DAILY #30 CAPSULE Ref 2 Prov:LACIE GAINES P DO 02/20/17 Reported Medications Hydrocodone-Acetaminophen 10-325 mg 1 Each Tablet1 Tablet PO Q6H PRN For Pain Ref 0 03/10/17 Loratadine (Claritin)10 Mg Xrridcm13 Mg PO DAILY Ref 0 03/10/17 Hydrochlorothiazide 12.5 Mg Ldmbimo86.5 Mg PO DAILY 30 Days Ref 0 03/10/17 [place]-3 Fatty Acids (Fish Oil)500 Mg Capsule.dr1,000 Mg PO DAILY 02/18/17 Aspirin 325 Mg Nhvltx860 Mg PO DAILY #1 BOTTLE 02/18/17 Omeprazole 40 Mg Capsule.dr40 Mg PO DAILY #30 02/18/17 Ranitidine 300 Mg Geyzgm004 Mg PO HS #30 02/18/17 Atorvastatin Calcium 20 Mg Lsniyc35 Mg PO HS #30 02/18/17 Discontinued Reported Medications Azelastine HCl 137 Mcg/0.137 Ml [place].pump1 [place] NASAL DAILY PRN allergies #30 02/18/17 Nitrofurantoin Macrocrystal (Macrodantin)100 Mg Capsule1 Capsule PO BID #14 02/18/17 Hydrocodone-Acetaminophen 5-325 mg 1 Each Tablet1-2 Tablet PO Q6H PRN For Pain # 20 02/18/17 Hydrochlorothiazide 25 Mg Bukfnd67 Mg PO DAILY #30 02/18/17 Discontinued Scripts Hydrocodone-Acetaminophen 10-325 mg 1 Each Tablet1-2 Tablet PO Q4H PRN For Pain #14 TABLET Prov:LACIE GAINES P DO 02/20/17 Levofloxacin (Levaquin)750 Mg Ukpqhn178 Mg PO DAILY #10 TABLET Prov:MCCLILLIAM MAY P DO 02/20/17 Lactobacillus Acidophilus (Probiotic Acidophilus)1.5 Mg (250 Million Cell) Capsule1.5 Mg PO DAILY #30 CAPSULE Prov:MCCFRANCESCA,LACIE P DO 02/20/17 History History of ENT Problems?: No HEENT History: Denies:: Abnormal Airway Cataracts Difficult Intubation Dysphagia Hearing Problem Sinus Problem TMJ Denture Type: None Teeth Condition: Within Normal Limits Hx of Heart Problems?: No Cardiovascular History: Positive for:: Edema (lower left leg- takes HCTZ for) Denies:: AICD Abdominal Aortic Aneurism Atrial Fibrillation Cardiac Surgery Chest Pain Congestive Heart Failure Heart Murmur Hypertension Irregular Heartbeat Pacemaker Rheumatic Fever Thrombophlebitis Valvular Heart Disease Hx of Respiratory Problem?: No Respiratory History: Denies:: Asthma COPD Chest Surgery Cough Dyspnea Emphysema Hemoptysis Oxygen Administration Pneumonia Pulmonary Embolism Tuberculosis Use of C-PAP Machine Hx Neurologic Problems?: No Neurological History: Positive for:: Headaches (Before menopause) Hx of GI Problems?: Yes Hx of Problems?: Yes Genitourinary History: Positive for:: Kidney Stones (right stone current problem, surg here 02/18/17) Denies:: HX of Hemodialysis Urinary Tract Infection (prior hx of) HX of Peritoneal Dialysis: No Female Hx: Denies:: Currently (tubal) Endometriosis Pelvic Inflammatory Problems with Breasts? Skin History: Positive for:: History Skin Disorders? (Sun spot right breast removed) Denies:: Pressure Ulcers Hx Musculoskeletal Problems?: No Musculoskeletal History: Denies:: Back Injury Musculoskeletal Trauma Myasthenia Gravis Osteoarthritis Hx of Psycho/Social Problems?: No Hx Surgeries?: Yes (tubal, cysto-stent) Hx Any Other Health Problems?: Yes Other History: Positive for:: Hospitalization (13 years ago - ureter sx bilateral) Denies:: Cancer Thyroid Disease History Blood Transfusions: Positive for:: Accept Blood Products? Denies:: Blood Transfuse Reaction Blood Transfusions Hx Diabetes: No Hx Alcohol Use: NoHx Substance Use: No Smoking Status: Never Smoker Stop/Bang S-Snoring: Do You Snore Loudly: Yes T-Tired: feel tired, fatigued: No O-Obsered: Observed not breath: No P-Blood Pressure: treated: Yes B- Body Mass Index > 35 kg/m2: No A- Age over 50: Yes N- Neck Large Circumference: No G- Gender Male: No CHELY Total Score: 3 CHELY Risk Assessment: High Risk, =/>3 Yes Risk Assessment Category Category 1A: Patient has history of documented sleep apnea, and HAS NOT received any narcotic, sedative or anesthesia administration during this stay. Category 1B: Patient has history of documented sleep apnea, and HAS received any narcotic , sedative or anesthesia administration during this stay Category 2: Patient has SUSPECTED Obstructive Sleep Apnea, and HAS received any narcotic , sedative or anesthesia administration during this stay. Category 3: Patient has SUSPECTED Obstructive Sleep Apnea and HAS NOT received narcotic, sedative or anesthesia administration during this stay. Category 4: Outpatient in Procedural Areas with known sleep apnea or who screen positive for High Risk via the STOP/BANG questionnaire. Exam Exam Vital Signs Vital Signs Date Time Temp Pulse Resp B/P Pulse Ox O2 Delivery O2 Flow Rate FiO2 03/17/17 13:03 36.6 81 14 114/76 96 Room Air General Appearance: Alert HEENT/AIRWAY: MP 3, Neck Movement (FROM, 3 FB) Lungs: Clear to Auscultation Heart: Regular Rate/Rhythm Meds/Labs/Diagnostics Admission Meds Current Medications Lactated Ringer's (Lr) 1,000 ml @ ud STK-MED ONCE IV Last administered on t 13:02; Start 03/17/17 at 13:02; Stop 03/17/17 at 13:03; Status DC Plan Impression Patient chart reviewed, patient interviewed and anesthestic plan with risks, benefits, and alternatives discussed, and informed consent obtained. NPO per Anesth. Guidelines: Yes ASA Physical Status: ASA2 Mod Systemic Disease Anesthetic Plan: GA Bene/Risks/Altern/Consents: Yes HP Complete Prior to Induction: Yes Dangelo Mcekon MD Mar 17, 2017 14:14
[2017-03-17] MEDS ORDERED: Dexamethasone 4 mg/mL Inj IVPUSH PRN (15:10)
[2017-03-17] MEDS ORDERED: EPHEDrine Sulfate 50 mg/mL Inj IVPUSH PRN (15:10)
[2017-03-17] MEDS ORDERED: HYDROmorphone 1 mg/mL Inj IVPUSH PRN (15:10)
[2017-03-17] MEDS ORDERED: MetoCLOpramide 5 mg/mL 2 mL Inj IVPUSH PRN (15:10)
[2017-03-17] MEDS ORDERED: fentaNYL-PF 50 mCg/mL 2 mL Inj IVPUSH PRN (15:10)
[2017-03-17] MEDS ORDERED: Phenylephrine 10,000 mCg/mL Inj IVPUSH PRN (15:10)
[2017-03-17] MEDS ORDERED: Ondansetron 2 mg/mL 2 mL Inj IVPUSH PRN (15:10)
[2017-03-17] MEDS ORDERED: Belladonna Alk-Opium 60 mg Rectal Suppository RECTAL ONE (15:41)
--- NOTE | 2017-03-17 16:25 | PCM.SURGPO ---
Immediate Operative Note Date of Surgery: Mar 17, 2017 Pre Operative Diagnosis R renal calculus Post Operative Diagnosis R renal calculus Procedure Cystoscopy, R ureteroscopy, Holmium laser lithotripsy, basket extraction of calculus fragments, R ureteral stent removal, and R ureteral stent placement Surgeon and Shank Archer Surgeon: Dustin Finnegan MD Assistants: None Findings Cystoscopy revealed no bladder tumors or calculi. R semi-rigid ureteroscopy revealed no calculi in R distal or R mid ureter. A 12/14F x 35cm ureteral access sheath was placed in R ureter. R flexible ureteroscopy revealed no calculi in R proximal ureter and an approx. 5-6mm R lower pole renal calculus. Holmium laser lithotripsy and basket extraction of calculus fragments were performed. R ureteral stent was removed, and a new R ureteral stent was placed. Complications There were no periprocedural complications identified. Surgical Specimen Removed: Yes Specimen sent to Pathology: No Surgical Specimen description: R renal calculus fragments sent to lab for stone analysis Anesthetic Administered: GA Grafts, Implants: Other (28cm x 5F R ureteral JJ stent (+string)) Output, Estimated Blood Loss: <5 Blood Admin during surgery: No Additional information Patient to return to see CHRISTY Mustafa in 4-6 days for post-op visit and stent removal. Dustin Finnegan MD Mar 17, 2017 16:25
--- NOTE | 2017-03-17 16:35 | PCM.DISURG ---
Surgical Discharge Instruction Date of Service Mar 17, 2017 Dates of Hospitalization Date of Hospital Admission Mar 17, 2017 Providers Admitting Physician: Dustin Finnegan MD Primary Care Physician: Karime Kenney MD Attending Physician: Dustin Finnegan MD Discharge Diagnosis Discharge Diagnosis R renal calculus Post Operative diagnosis R renal calculus Diet Discharge Diet: No restrictions, Other (Drink at least 10-12 8oz. glasses (3 liters) of fluids per day) Activity Discharge Activity-General: No driving while taking narcotic Dressing and Incisional Care Hygiene: May shower Additional Instructions Discharge Instructions Do not pull on the stent string (which is in the vagina) Follow Up Plan Follow-up Provider (F9): Megha Mustafa PA-C Follow-up appointment: Days (4-6 days for post-op visit and stent removal) Call your provider for: Fever, Chills, Vomiting, Other (Pain uncontrolled by pain medications) Dustin Finnegan MD Mar 17, 2017 16:35
[2017-03-17] MEDS ORDERED: HYDROcodone-APAP 5-325 mg Tablet PO PRN (16:40)
[2017-03-17] MEDS ORDERED: Phenazopyridine 97.5 mg Tablet PO PRN (16:45)
--- NOTE | 2017-03-17 17:03 | DRSVH ---
PROCEDURE: X-RAY RETROGRADE UROGRAPHY INDICATIONS: RIGHT KIDNEY STONE TECHNIQUE: 2 intra-operative images acquired by the Urology service. COMPARISON: Outside Film, CT, CT ABD PELVIS W CON, 02/17/2017, 20:13. [facility], CR, X R KUB, 03/04/2017, 14:53. [facility], CR, XR RETROGRADE UROGRAPHY, 02/18/2017, 5:31. FINDINGS: Exam limited to submitted images. Within these limits, partial opacification of the right renal collecting system which demonstrates no hydronephrosis and no definite intraluminal filling de fects visualized. Ureteral stent in place. IMPRESSION: Limited exam demonstrating partial opacification of the right renal collecting system which demonstra radha no hydronephrosis or visualized intraluminal filling defects. Ureteral stent placed. Dictated by: Lalito العلي Eric Interpreted: Keron Rudolph MD on 03/17/2017 at 16:23 Approved by: Keron uRdolph M.D. on 03/17/2017 at 17:00
--- NOTE | 2017-03-17 19:52 | PCM.ANEP1 ---
Post Anesthesia PACU Phase 1 Assessment Vital Signs Vital Signs Date Time Temp Pulse Resp B/P Pulse Ox O2 Delivery O2 Flow Rate FiO2 03/17/17 17:23 66 16 109/69 96 Room Air 03/17/17 16:48 36.2 70 16 113/66 95 Room Air 03/17/17 16:42 83 15 120/75 95 Room Air 03/17/17 16:38 76 14 119/76 95 Room Air 03/17/17 16:25 74 15 118/74 99 Room Air 03/17/17 16:20 71 14 116/72 99 Simple Mask 10 03/17/17 16:15 72 16 122/72 99 Simple Mask 10 03/17/17 16:10 36.6 75 17 102/73 99 Simple Mask 10 03/17/17 13:03 36.6 81 14 114/76 96 Room Air Anesthetic Administered: GA Level of Alertness: Awake, talking BOWMAN's with Equal Strength: Yes Pain: No Nausea or Vomiting: No CV Function & Hydration Stable: Yes Airway Device: Oxygen Delivery: Simple Mask Lungs: Clear to Auscultation PACU Phase 2 Assessment Complications: No Follow up Care: N/A Patient Instructions Provided: N/A Dangelo Mckeon MD Mar 17, 2017 19:52
--- NOTE | 2017-03-18 21:02 | OP ---
[address] [address] OPERATIVE REPORT PATIENT: RAMILA LOPEZ : 1960 MR#: [id number] ADMIT: 03/17/2017 JOB ID: [id number] DATE OF SURGERY: 03/17/2017 PREOPERATIVE DIAGNOSIS(ES): Right renal calculus. POSTOPERATIVE DIAGNOSIS(ES): Right renal calculus. PROCEDURE: Cystoscopy, right ureteroscopy, holmium laser lithotripsy, basket extraction of calculus fragments, right ureteral stent removal, and right ureteral stent placement. SURGEON: Dustin Finnegan MD. EDGE BONDER: None. ANESTHESIA: General. ESTIMATED BLOOD LOSS: Less than 5 mL. SPECIMENS: Right renal calculous fragments sent to the lab for stone analysis. DRAINS: A 28 cm x 5-Indonesian right ureteral double-J stent. COMPLICATIONS: None. CONDITION: Stable. FINDINGS: Cystoscopy revealed no bladder tumors or calculi. Right semi-rigid ureteroscopy revealed no calculi in right distal or right mid ureter. A 12/14-Indonesian x 35 cm ureteral access sheath was placed in the right ureter. Right flexible ureteroscopy revealed no calculi in right proximal ureter and an approximately 5-6 mm right lower pole renal calculus. Holmium laser lithotripsy and basket extraction of calculus fragments were performed. Right ureteral stent was removed and a new right ureteral stent was placed. INDICATIONS: The patient is a 57-year-old female, status post cystoscopy and right renal stent placement on February 18, 2017, for an obstructing right ureteral calculus, right hydronephrosis in septic shock. The patient was treated with antibiotics. Patient completed antibiotics with resolution of infection. The patient now presents for cystoscopy and KUB showed a right renal calculus. The patient now presents for cystoscopy, right ureteroscopy, holmium laser lithotripsy, possible basket extraction of calculus fragments, right ureteral stent removal, and right ureteral stent placement. PROCEDURE: The patient was brought to the operating room and placed supine on the operating room table. The patient was given ceftriaxone and IV antibiotics. Sequential compression device boots were placed. General anesthesia was administered. The patient was brought down in dorsal position. Patient was prepped and draped in standard surgical fashion A 22-Indonesian rigid cystoscope was placed through the urethra into the bladder without difficulty. Cystoscopy revealed no bladder tumors or calculi. Bilateral ureteral orifices were in normal position. The distal end of the right ureteral stent could be seen emerging from the right ureteral orifice. The distal end of the stent was grasped with cystoscopic grasper and brought to the urethral meatus. A PTFE guidewire was advanced through the old stent and passed up the right ureter into the right renal pelvis. The old stent was removed and discarded in its entirety. The PTFE guidewire was secured to the drape with the Ara clamp and a safety wire. A semi-rigid ureteroscope was passed through the urethra and bladder and into the right ureteral orifice with the assistance of a straight-tip UltraTrack guidewire. Right semi-rigid ureteroscopy revealed no calculi in right distal or right mid ureter. The UltraTrack guidewire was advanced up the right ureter into the right renal pelvis. The semi-rigid scope was removed from the patient. The UltraTrack guidewire was secured to the drape with a Ara clamp and a safety wire. A 12/14-Indonesian x 35 cm ureteral access sheath was passed over the PTFE guidewire through the urethra, bladder, and up the right ureter into the right mid ureter. The inner portion of the sheath and PTFE guidewire were removed the patient. A flexible ureteroscope was advanced through the ureteral access sheath into the right proximal ureter. Right flexible ureteroscopy revealed no calculi in right proximal ureter and an approximately 5-6 mm right lower pole renal calculus. Holmium laser lithotripsy of the calculus was performed using a 273 micron holmium laser fiber. Basket extraction of all significant calculus fragments was performed using a 2.2-Indonesian NCircle nitinol basket and calculus fragments were sent to the laboratory for stone analysis. The right renal pelvis and all calices were visualized. No significant 2 mm or larger calculus fragments were seen. A small amount of contrast was instilled into the right renal collecting system to illuminate the right renal collecting system and stent placement. The flexible ureteroscope and medial access sheath were backed out of the right ureter. The entire right ureter was visualized. No significant 2 mm or larger calculi fragments were seen. The flexible ureteroscope and ureteral access sheath were removed from the patient. The rigid cystoscope was passed over the safety guidewire through the urethra into the bladder. A 28 cm x 5-Indonesian ureteral double-J stent, with the stent string left in place, was passed over the guidewire through the cystoscope and passed up the right ureter and placed so the proximal pigtail was located in the right renal pelvis, distal pigtail was located in the bladder. Guidewire was removed. Correct positioning of the stent was confirmed both fluoroscopically and under direct visualization using the cystoscope. Good efflux of contrast could be seen draining from the distal end of the stent into the bladder further confirming correct stent positioning. The bladder was drained with the cystoscope. The cystoscope was removed from the patient. The stent string was placed in the patient's vagina. The skin was cleaned and dried. The patient was placed in supine position. The patient was awakened from general anesthesia and transferred to the recovery room in stable condition. The patient tolerated the procedure well. Plan is for the patient to return to see CHRISTY Mustafa in 4-6 days for postop visit and stent removal.
[2017-03-22 12:11] LABS: Stone Color Brown (.)
== END 2017-03-17 23:59 | disposition home or self-care (01) ==
LOC: SAS 12:13
PROVIDERS: ATTEND Urology
DX: N20.0 Calculus of kidney (principal); Z87.440 Personal history of urinary (tract) infections; Z96.0 Presence of urogenital implants